=== PATIENT | female | born 2000 | race Asian ===

== ENCOUNTER 2022-12-28 00:40 | Emergency (ER) | payer OTHER ==
[~2022-12-28] VITALS: Ht 167.6 cm; Wt 80.0 kg
[2022-12-28 02:45] LABS: BASOPHILS % 0.4 % (0.0-2.0); EOSINOPHILS % 0.2 % (0.0-5.0); HEMATOCRIT. 40.6 % (36.0-48.0); HEMOGLOBIN. 13.3 g/dL (12.0-16.0); MEAN CORPUSCULAR HEMOGLOBIN 26.8 pg (28.0-32.0); MEAN CORPUSCULAR VOLUME 81.5 fL (81.0-99.0); MEAN PLATELET VOLUME 8.1 fl (7.4-10.4); MONOCYTES % 2.3 % (2.0-8.0); NEUTROPHILS % 67.1 % (40.0-76.0); PLATELET 338 x1000/uL (130-400); RED BLOOD CELL COUNT 4.98 mill/uL (4.2-5.4); RED CELL DISTRIBUTION WIDTH 14.9 % (11.6-14.6)
[2022-12-28 02:46] LABS: HCG SCREEN NEGATIVE
[2022-12-28 02:52] LABS: CHLORIDE 113 mEq/L (98-107)
[2022-12-28 02:59] LABS: ETHANOL BLOOD 249 mg/dL
[2022-12-28 08:30] VITALS: BP 115/72
== END 2022-12-28 09:00 | disposition home or self-care (01) ==
LOC: EDBD 00:40 → ER 00:40
DX: F10.129 Alcohol abuse with intoxication, unspecified (principal); Y90.8 Blood alcohol level of 240 mg/100 ml or more
CPT/HCPCS: 36415; 80053; 80320; 84703; 85025; 99283; Z7610; G0480